=== PATIENT | male | born 1980 | race Caucasian/White ===

== ENCOUNTER 2025-05-19 06:13 | Day surgery (SDC) | payer OTHER ==
[2025-05-19] MEDS: Lactated Ringers 1,000 ML IV SCH (06:59)
[2025-05-19] MEDS ORDERED: fentaNYL 50 MCG/ML SDV ONE (07:00)
[2025-05-19] MEDS ORDERED: Propofol 200 MG/20 ML SDV ONE ×2 (07:00→07:44)
[2025-05-19] MEDS ORDERED: Midazolam 1 MG/ML 2 ML SDV ONE (07:00)
== END 2025-05-19 09:41 | disposition home or self-care (01) ==
LOC: JP.SDS 06:13
PROVIDERS: ATTEND Family Medicine
DX: Z12.11 Encounter for screening for malignant neoplasm of colon (principal); D12.3 Benign neoplasm of transverse colon; Z88.8 Allergy status to other drugs, medicaments and biological substances; Z91.030 Bee allergy status; Z79.899 Other long term (current) drug therapy
CPT/HCPCS: 00812; 45380; 88305; J2250; J2704; J3010; J7120